=== PATIENT | male | born 1955 | race African-American/Black ===

== ENCOUNTER → 2018-05-15 | Outpatient (CLI) | payer BC ==
[~2018-05-15] MED LIST: ACETAMINOP160 MG/51 PER TUBE; AKWA TEARS OIN3.5 GM OPHTHALMIC; AMLODIPINE BESY10 MG PER TUBE; ARTIFICIAL TEA3.5 G2 OPHTHALMIC; ASPERCREME1 EACH TOP; ASPIR 8181 MG PER TUBE; CLONIDINE HCL0.2 M2 PER TUBE; COREG25 M1 PER TUBE; CYCLOBENZAPRINE5 MG PER TUBE; FAMOTIDINE20 MG PER TUBE; FERROUS SU300 MG/5 M PER TUBE; FLUSH FLUSH; HYDRAZINE SULFAT1 GM PER TUBE; HYTRIN 1 MG CAP1 MG PER TUBE; ISOSORBIDE DN 110 M1 PER TUBE; LASIX 20 MG TAB20 MG PER TUBE; LEXAPRO 10 MG T10 M2 PER TUBE; MIRTAZAPINE15 M2 PER TUBE; NEPHROCAPS SOFT1 CAP PER TUBE; NITROGLYCERIN0.4 MG SUBLING; NYAMYC15 GM TOP; ONDANSETRON HCL4 M2 PER TUBE; OXYCODONE HCL 55 MG PER TUBE; PERIDEX15 ML SWISH&SPIT; SENNA8.6 MG PER TUBE; TRAMADOL 50 MG50 MG PER TUBE; TRAMADOL 50 MG50 MG PO; VITAMIN D2000 UNIT PER TUBE; VITAMIN D250000 UNIT PO; WELLBUTRIN 75 M75 M1 PER TUBE; ZOSYN 2.252.25 GM/51 IV; ZOSYN 3.3753.375 GM IV
--- NOTE | ~2018-05-15 | HC ---
[facility] [place] [address] CONSULTATION Name: NAMRATA BARNEY Room #: REG [facility] Raegan#: [id number] Admission: 05/15/18 Attend Phys: Chico Fay Discharge: Date of : 53 Report #: [id number] THIS REPORT FOR: //name// CC: Chico Rocha DATE OF SERVICE: 05/15/2018 INFECTIOUS DISEASE CONSULTATION REASON FOR CONSULTATION: Recommendation regarding antibiotics, left fifth metatarsophalangeal joint osteomyelitis, right hip stage IV decubitus, question septic arthritis. HISTORY OF PRESENT ILLNESS: The patient is a 62-year-old man with multiple medical problems, residing at a local nursing facility, [facility]. The patient apparently recently had an MRI of the left foot as well as the right hip for evaluation of chronic ulcers on the left foot and chronic ulceration of right hip area. The patient apparently had a PICC line inserted some 3 weeks ago and been on treatment with Zosyn 2.25 g IV every 8 hours. The patient is scheduled to have left fifth ray amputation of the fifth toe by Dr. Ar Ruggiero this coming week. At present, the patient voices no major complaints. He occasionally has pain in the hip area as well as the left foot. PAST MEDICAL HISTORY: Diabetes mellitus for some 10 years, history of chronic kidney disease complicated by acute renal injury failure requiring hemodialysis through a left internal jugular tunneled dialysis catheter. The patient apparently is scheduled to have a fistula in June 2018. The patient is currently being dialyzed at [facility], and Dr. Del Rio is his farrowing worker. The infectious disease coverage was by Dr. Concepcion and Dr. Del Rio at [facility]. Past medical history is also positive for recent respiratory failure, right lung pneumonia and pleural effusion requiring hospitalization at [facility] on 12/22/2017. Subsequently, the patient was transferred to [facility] on 01/19/2018 and subsequently to the intermediate facility as listed above. The patient apparently was diagnosed to have septic arthritis of the right hip and was not deemed to be a surgical candidate during that previous hospitalization. He did have previous urinary tract infection with Enterococcus species and Pseudomonas aeruginosa. The right total hip arthroplasty was infected with Staphylococcus aureus, oxacillin sensitive. 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 Recent culture obtained on 04/15/2018, I suspect of the left foot wound revealed light growth of Klebsiella pneumonia and moderate growth of Enterococcus faecalis. The Enterococcus faecalis was ampicillin sensitive and the Klebsiella pneumoniae was sensitive to most antibiotics, but ampicillin, the organism sensitive to Zosyn. [address] [address] CONSULTATION Name: NAMRATA BARNEY Room #: FREDERICK Carlin#: [id number] Admission: 05/15/18 Attend Phys: Chico Fay Discharge: Date of : 53 Report #: [id number] DRUG ALLERGIES: None listed. MEDICATIONS: The patient is currently on treatment with Zosyn 2.25 g IV every 8 hours as well as p.r.n. tramadol, terazosin 1 mg per feeding tube daily, senna 2 tablets feeding tube daily, oxycodone p.r.n., ondansetron p.r.n., mirtazapine 15 mg per feeding tube at bedtime, isosorbide 10 mg per feeding tube 3 times daily, hydralazine 100 mg per feeding tube 3 times daily, Lasix 20 mg daily, ferrous sulfate, famotidine, citalopram, cyclobenzaprine, clonidine, carvedilol, bupropion, multivitamins. The patient is on dialysis 3 times weekly Tuesdays, and Saturdays through the left internal jugular tunneled dialysis catheter. PHYSICAL EXAMINATION: GENERAL: Chronically ill-appearing man, not toxic looking, presenting with following vital signs. VITAL SIGNS: Temperature 98.4, pulse 80, BP 148/78, O2 saturation 98% on room air. HEENMT: Head normocephalic, atraumatic. Pupils reactive. Mouth: No thrush. NECK: Supple, no thyromegaly. CHEST: Left internal jugular dialysis catheter. LUNGS: Clear. HEART: S1, S2. No gallop or murmur. ABDOMEN: Revealed percutaneous gastrostomy, soft, no masses or megaly. GENITALIA: Deferred. RECTAL: Deferred. BACK: Revealed a stage IV right gluteal ischial decubitus with exposed deep structures. EXTREMITIES: No clubbing, cyanosis, pretibial edema. On the left fifth toe fifth metatarsophalangeal joint area, there is a superficial ulceration, and no active signs of infection. LABORATORY DATA: MRI on 05/13/2018 of the pelvis revealed bony remodeling of right hip with acetabular protrusion and loss of femoral head with complex joint effusion. Differential includes septic arthritis or previously treated infection. MRI of the left foot on 05/04/2018 revealed osteomyelitis and septic arthritis involving the left distal fifth metatarsal and fifth proximal phalanx of the fifth metatarsophalangeal joint. On 03/11/2018, chemistries reveal the following abnormals, BUN 54, creatinine 3.4, albumin 2.2 g/dL, alkaline phosphatase 312 U/L, prealbumin 1.3 is mg/dL. ASSESSMENT: 1. Chronic osteomyelitis, left fifth metatarsophalangeal joint area (possible infection with Klebsiella pneumoniae, Enterococcus faecalis) -- for right amputation this coming week. [facility] [address] [place] [address] CONSULTATION Name: SAVITANAMRATA Room #: REG [facility] Sravan.#: [id number] Admission: 05/15/18 Attend Phys: Chico Fay Discharge: Date of : 53 Report #: [id number] 2. 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 3. Diabetes mellitus. 4. Chronic kidney disease, on hemodialysis 3 times weekly. 5. Malnutrition, severe. 6. Anemia of chronic disease. 7. Status post percutaneous gastrostomy. SUGGESTION: For time being, recommend continuation of treatment with Zosyn 2.25 g IV every 12 hours. This antibiotic will cover the isolated organisms on the left foot that include the Klebsiella pneumoniae and Enterococcus faecalis as well as the previously isolated Staphylococcus aureus, oxacillin sensitive in right hip infection. Possibly recommend increasing dose of Zosyn to 2.25 g IV every 8 hours, which is the usual dose for Zosyn in patients with renal failure Proceed with right amputation. The issue of right hip infection will be addressed at a later date after I review MRI of the hip and possibly discuss the patient's situation with Dr. Maximo Concepcion or Dr. Alex Del Rio, which I believe may have seen this patient before at [facility]. Dr. Rocha, thank you for requesting my suggestions in the care of your patient. <ELECTRONICALLY SIGNED> By: Chico Maldonado MD 05/18/18 1033 1212 2215 Chico Maldonado MD /nt
[2018-05-15 11:15] VITALS: BP 143/78
== END ==
LOC: EDBD 08:17 → SEN 08:17
DX: M86.8X7 Other osteomyelitis, ankle and foot (principal); E11.22 Type 2 diabetes mellitus with diabetic chronic kidney disease; N18.9 Chronic kidney disease, unspecified; D63.1 Anemia in chronic kidney disease; M00.051 Staphylococcal arthritis, right hip; B95.7 Other staphylococcus as the cause of diseases classified elsewhere; Z93.1 Gastrostomy status

== ENCOUNTER 2018-05-22 05:35 | Inpatient (IN) | payer OTHER, BC ==
[~2018-05-22] VITALS: Ht 180.3 cm; Wt 64.7 kg
--- NOTE | ~2018-05-22 | EKG ---
[address] [address] ELECTROCARDIOGRAM REPORT Name: NAMRATA BARNEY Katherin Room #: 150-4 [facility]#: [id number] Admission: 05/22/18 Attend Phys: Ar Ruggiero MD Discharge: Date of : 53 Report #: [id number] THIS REPORT FOR: //name// [facility] Test Date: 2018-05-22 Test Time: 06:35:45 Pat Name: NAMRATA BARNEY Department: Room: 150 Gender: M Associate Doctor: PER : 1955 Requested By: Ar Ruggiero Order Number: [id number] MD: Antony Doherty Measurements Intervals [place] Rate: 94 P: 40 OR: 169 QRS: -18 QRSD: 88 T: 54 QT: 358 QTc: 448 Interpretive Statements Sinus rhythm Borderline left axis deviation Borderline low voltage, extremity leads No previous ECG available for comparison Electronically Signed On 05-22-2018 8:19:38 CDT by Antony Doherty [email or web address] <ELECTRONICALLY SIGNED> By: Antony Doherty MD, [facility] 05/22/18 0819 4 4 Antony Doherty MD, [facility] /EPI
--- NOTE | ~2018-05-22 | PATH ---
[facility] [address] [place] [address] PATHOLOGY RPT PROCEDURE Name: SAVAGE BARNEY Room #: 462-P ADM IN M.R.#: [id number] Admission: 05/22/18 Date of : 53 Discharge: Report #: [id number] Path Case #: [id number] [facility] Accession Number: [id number] . 01 Material submitted: . LEFT 5TH RAY . 01 Clinical history: . Left fifth metatarsal osteomyelitis . 02 Diagnosis: "Left fifth ray", amputation: - Skin and subcutaneous tissue with acute and chronic inflammation, necrosis, granulation tissue, fibrosis and pseudoepitheliomatous hyperplasia. - Decalcified bone with fibrosis, predominantly chronic inflammation, edema, granulation tissue and extensive bony remodeling. (See comment) LBQ/05/25/2018 . 02 Comment: The decalcified bony findings may represent chronic osteomyelitis and reparative changes. Clinical and radiographic correlation is recommended. (CLW:db; 05/25/2018) . 02 Electronically signed: . Madyson Lubin MD, Pathologist NPI- [id number] . 01 Gross description: . The specimen is received in formalin, labeled "Savage Banrey, left fifth ray" and consists of a transected toe measuring 7.2 x 2.4 x 2.1 cm. The nail is present which is soft and rodriguez-iglesias. There is a segment of attached skin on the left plantar aspect measuring 5.0 x 2.0 cm which displays an ulcerated lesion measuring 2.3 x 1.5 cm which extends to a depth of 0.8 cm. The remainder of the toe has no attached skin. The proximal bone margin is flat and smooth. The toe is longitudinally sectioned and submitted representatively as follows: . A1: Skin and soft tissue margin with ulceration A2: Proximal bone margin A3: Toe, longitudinal section proximal A4: Toe, longitudinal section mid A5: Toe, longitudinal section distal Cassette A2-A5 will be submitted following decalcification. (SDY; 05/22/2018) SYU/SYU . [address] [place] [address] PATHOLOGY RPT PROCEDURE Name: SAVAGE BARNEY Room #: 462-P ADM IN M.R.#: [id number] Admission: 05/22/18 Date of : 53 Discharge: Report #: [id number] Path Case #: [id number] Pathologist provided ICD-10: L08.9, L92.8, L90.5, L85.8, M89.8X7 . 02 CPT . 991149, 681469 Performed at: [address], [place] [id number] MD Samuel Gillespie MD Phone: [phone] Performed at: [address] [id number] MD Dina Pyle MD Phone: [phone]
--- NOTE | ~2018-05-22 | HC ---
[facility] [place] [address] CONSULTATION Name: NAMRATA BARNEY Katherin Room #: 462-P [facility]#: [id number] Admission: 05/22/18 Attend Phys: Ar Ruggiero MD Discharge: Date of : 53 Report #: [id number] THIS REPORT FOR: //name// CC: Ar Ruggiero [facility] DATE OF SERVICE: 05/23/2018 REASON FOR CONSULTATION: End-stage renal disease. HISTORY OF PRESENT ILLNESS: This 62-year-old patient was admitted to this hospital for a left fifth metatarsal ray amputation for osteomyelitis yesterday. He has end-stage renal disease, has been on dialysis for the past 5 months. He has had previous septic arthritis of the right hip with MSSA, multiple other infections, longstanding diabetes and hypertension. He has been dialyzing 3 times weekly. Last dialyzed 2 days ago. PAST MEDICAL HISTORY: Longstanding diabetes mellitus complicated by peripheral neuropathy, but no retinopathy according to the patient. He has had debility. He had a prolonged hospitalization at [facility], at which time he had the acute superimposed on chronic kidney disease and has been on dialysis ever since. FAMILY HISTORY: Negative for diabetes or kidney disease. SOCIAL HISTORY: No cigarettes or alcohol. He has not been home. He is currently now staying in extended care facility. REVIEW OF SYSTEMS: GENERAL: He has been feeling better. EYES: Vision is okay. Did have cataract surgery. ENT: Hearing okay. He is swallowing okay now. He did not for a while. He did have a PEG tube in which he still has in. ENDOCRINE: Positive for the diabetes. RESPIRATORY: Denies shortness of breath, pleuritic pain, emphysema, asthma. CARDIAC: Denies chest pain, angina or heart disease. GASTROINTESTINAL: Denies nausea, vomiting or diarrhea. He is eating okay. GENITOURINARY: Continues to make some urine, no dysuria. PSYCHIATRIC: Denies depression or anxiety. NEUROLOGIC: Denies seizure, syncope or stroke. He does have the peripheral neuropathy. PHYSICAL EXAMINATION: GENERAL: This is a somewhat chronically ill appearing patient. He is awake and alert and lucid, giving good history. SKIN: Unremarkable. [facility] [address] [place] [address] CONSULTATION Name: NAMRATA BARNEY Room #: 462-P [facility].#: [id number] Admission: 05/22/18 Attend Phys: Ar Ruggiero MD Discharge: Date of : 53 Report #: [id number] SKELETAL: He is thin. HEENT: Extraocular movements are full. Vision is intact and there is no scleral icterus. Mucous membranes are moist. No buccal mucosal lesions are noted. NECK: Supple without carotid bruits or thyromegaly. CHEST: Completely clear to auscultation. HEART: Regular. ABDOMEN: Soft and nontender. PEG tube in place. EXTREMITIES: Show no edema. Peripheral pulses intact. NEUROLOGIC: Intact. LABORATORY DATA: Potassium 4.6, bicarbonate 19, creatinine yesterday 3.1, albumin only 2.3. ASSESSMENT: 1. End-stage renal disease, continuing on routine 3 times weekly dialysis. Dialysis orders written for today. 2. Diabetes mellitus with peripheral neuropathy and end-stage renal disease. 3. Status post septic arthritis of the right hip. 4. Status post ray amputation of the left fifth metatarsal for osteomyelitis. By: [id number] León Jameson MD /nt
--- NOTE | ~2018-05-22 | HC ---
[facility] [place] [address] CONSULTATION Name: NAMRATA BARNEY Room #: 462-P ADM IN ..#: [id number] Admission: 05/22/18 Attend Phys: Ar Ruggiero MD Discharge: Date of : 53 Report #: [id number] THIS REPORT FOR: //name// CC: Ar Ruggiero [facility] DATE OF SERVICE: 05/25/2018 CHIEF COMPLAINT: Sacral ulcer and bleeding from left foot. HISTORY OF PRESENT ILLNESS: This is a 62-year-old male patient with a known pressure ulcer to his sacrum. He has been under the care of an outside physician at a local [place] [facility] [place] facility. He was noted to have osteomyelitis of his left foot, has undergone a fifth ray resection. He also has a history of a sacral pressure ulceration. He has been receiving local care for that. The patient denies pain at this time. He had significant bleeding from his surgical site today and I have placed sutures to help stop the bleeding. PAST MEDICAL HISTORY: Positive for type 2 diabetes mellitus, chronic kidney disease requiring hemodialysis, has a history of respiratory failure. He has had a previous right total hip arthroplasty that was previously infected with Staphylococcus aureus. ALLERGIES: None. MEDICATIONS: include Zosyn, tramadol, terazosin, senna, oxycodone, ondansetron, mirtazapine, famotidine, citalopram, cyclobenzaprine, clonidine, carvedilol, bupropion, multivitamin. FAMILY HISTORY: Noncontributory. SOCIAL HISTORY: Negative for current alcohol or tobacco use. REVIEW OF SYSTEMS: CONSTITUTIONAL: The patient denies fever, chills, weight loss. NEUROLOGICAL: The patient denies focal weakness. ENT: The patient denies earache, nasal drainage or sore throat. CARDIOVASCULAR: The patient denies chest pain, palpitations, diaphoresis. PULMONARY: The patient denies cough, shortness of breath. GASTROINTESTINAL: The patient denies nausea, abdominal pain. ORTHOPEDIC: The patient is aware of the bleeding from his left foot. Denies pain, is aware of the sacral ulceration. Other systems in a 14-point review of systems are negative. PHYSICAL EXAMINATION: VITAL SIGNS: At this time include pulse 87, respiratory rate 20, blood pressure [facility] [address] [place] [address] CONSULTATION Name: NAMRATA BARNEY Katherin Room #: 2[facility]#: [id number] Admission: 05/22/18 Attend Phys: Ar Ruggiero MD Discharge: Date of : 53 Report #: [id number] 135/67, temperature 99.5. GENERAL: This is a chronically ill-appearing male patient who appears to be in no distress. HEENT: Head normocephalic. Nose and throat are clear. NECK: Supple. LUNGS: Diminished. HEART: Regular rhythm. ABDOMEN: Soft, is nontender. He has a percutaneous gastrostomy tube. BACK: Sacral region demonstrates a stage 3 or 4 sacral coccygeal pressure ulceration that is relatively clean and granulating. I am not able to palpate bone at this time. It has been previously classified as a stage 4. EXTREMITIES: Demonstrate some bleeding from the surgical incision line. This was corrected with direct pressure and by placement of 2 sutures. Please see separate procedure note. CLINICAL IMPRESSION: 1. Stage 4 sacral pressure ulceration. 2. Chronic osteomyelitis, left fifth MTP status post fifth ray resection. 3. Diabetes mellitus. 4. Chronic kidney disease, on hemodialysis. 5. Severe protein calorie malnutrition. 6. Status post percutaneous gastrostomy tube. RECOMMENDATIONS: At this point in time, recommend silver alginate and gauze dressing to be applied to the sacral ulceration daily. He will need to be turned and repositioned every 2 hours. We will recommend aggressive nutritional support to maximize wound healing and improved glycemic control. Recommend Prevalon boots to the lower extremities. A pressure dressing left in place involving the left foot. I appreciate being asked to see him in consultation. <ELECTRONICALLY SIGNED> By: Mo Olsen MD 05/26/18 1211 1847 36 Mo Olsen MD /nt
--- NOTE | ~2018-05-22 | P ---
[facility] [place] [address] PROCEDURE REPORT Name: SAVITAOTT L Room #: 462-P ADM IN M.R.#: [id number] Admission: 05/22/18 Attend Phys: Ar Ruggiero MD Discharge: Date of : 53 Report #: [id number] THIS REPORT FOR: //name// CC: Ar Ruggiero [facility] DATE OF SERVICE: 05/25/2018 CHIEF COMPLAINT: Bleeding from the left foot. HISTORY OF PRESENT ILLNESS: This is a 62-year-old male patient with a history of left fifth metatarsal osteomyelitis who has undergone a fifth ray amputation. Apparently, one of the nurse practitioners pulled the drain today. Subsequently, he developed significant bleeding. I was called urgently to the bedside to see him. Upon my arrival, the patient denied significant pain, but nurses noted a moderate amount of blood saturating the dressings as well as on the bed itself. Initially, a small hematoma was expressed from the distal portion of the incision line and a pressure dressing was applied. After hemostasis was verified, a procedure tray was ordered to the bedside and after local anesthetic several sutures were placed. PREPROCEDURE DIAGNOSIS: Surgical incision, left foot, status post left foot fifth ray amputation. POSTPROCEDURE DIAGNOSIS: Surgical incision, left foot, status post left foot fifth ray amputation. PROCEDURE PERFORMED: Primary repair of bleeding incision line. DESCRIPTION OF PROCEDURE: After appropriate consent was obtained and timeout was taken, the left foot was prepped with Betadine and draped in the usual sterile fashion. The distal incision line was anesthetized with 1% plain lidocaine. After adequate anesthesia, 2 sutures of 3-0 nylon were utilized in a simple interrupted fashion to tightly close a small opening along the incision line with good hemostasis. The patient tolerated the procedure well. Estimated blood loss from the procedure was minimal. A dry gauze dressing with Kerlix and Vasquez was then applied. The patient tolerated this well. <ELECTRONICALLY SIGNED> By: Mo Olsen MD 05/26/18 1211 1828 1926 Mo Olsen MD /nt
--- NOTE | ~2018-05-22 | O ---
[facility] [place] [address] OPERATIVE REPORT Name: SAVITANAMRATA Room #: 462-P [facility] IN ..#: [id number] Admission: 05/22/18 Attend Phys: Ar Ruggiero MD Discharge: 05/26/18 Date of : 53 Report #: [id number] THIS REPORT FOR: //name// CC: Ar Ruggiero [facility] DATE OF SERVICE: 05/22/2018 PREOPERATIVE DIAGNOSIS: Left foot fifth metatarsal osteomyelitis. POSTOPERATIVE DIAGNOSIS: Left foot fifth metatarsal osteomyelitis. PROCEDURE: Left foot fifth ray amputation. SURGEON: Ar Ruggiero MD SURGERY MANAGER: Brie Sweet. ANESTHESIA: General. ESTIMATED BLOOD LOSS: Minimal. DRAINS: No drains. TOURNIQUET TIME: 15 minutes. DESCRIPTION OF PROCEDURE: The patient brought to the operating room where he was placed under general anesthesia. Once under adequate general anesthesia, his left lower extremity was prepped and draped in a sterile manner. The extremity was elevated and a tourniquet placed to 300 mmHg. A racquet shaped incision was then placed about the base of the proximal phalanx of the fifth toe and extended along the fifth metatarsal. This was dissected sharply down to the bone releasing any dorsal soft tissue from the toe as well as the fifth metatarsal. Once released and the metatarsal was exposed, the metatarsal was then subsequently osteotomized with a sagittal saw, a transverse cut through the bone. Once released, the bone was then completely removed utilizing a 15 blade to completely release the soft tissue and the entire metatarsal and toe was removed. Once completely removed, the wound was irrigated copiously and closed over a Jeanette drain with 2-0 nylon suture in a simple stitch manner. The wound was then dressed with Xeroform, 4 x 4s and a sterile soft compressive dressing was placed. Tourniquet was let down at approximately 15 minutes. There were no [facility] [address] [place] [address] OPERATIVE REPORT Name: SAVITAOTT L Room #: 462-P [facility]#: [id number] Admission: 05/22/18 Attend Phys: Ar Ruggiero MD Discharge: 05/26/18 Date of : 53 Report #: [id number] complications from the procedure. The patient tolerated the procedure well and was taken to the recovery room without incident. <ELECTRONICALLY SIGNED> By: Ar Ruggiero MD 06/09/18 1206 0811 0904 Ar Ruggiero MD /nt
[~2018-05-22 05:35] MED LIST changes: +HYDRALAZINE HC100 MG PER TUBE; +[UNRECOGNIZED DRUG - OTHER] PER TUBE; +[UNRECOGNIZED DRUG - OTHER] PER TUBE
[2018-05-22 06:39] VITALS: BP 176/84
[2018-05-22 07:07] LABS: HEMATOCRIT 25.1 % (42.0-52.0); HEMOGLOBIN 8.5 gm/dL (14.0-18.0); MCH 30.7 pg (26.0-34.0); MCHC 33.8 g/dL (28.0-37.0); MCV 90.9 fL (80.0-100.0); RBC 2.77 mil/uL (4.50-6.00); RDW 17.5 % (10.5-14.5); WBC 6.4 thou/uL (4.0-11.0)
[2018-05-22 07:14] LABS: CALCIUM 7.9 mg/dL (8.5-10.1); CREATININE 3.1 mg/dL (0.7-1.3); POTASSIUM 3.7 mmol/L (3.5-5.1)
[2018-05-22 07:21] LABS: ALBUMIN 2.3 g/dL (3.4-5.0); TOTAL BILIRUBIN 0.6 mg/dL (<0.1-1.0); TOTAL PROTEIN 7.7 g/dL (6.4-8.2)
[2018-05-22 16:00] VITALS: BP 173/96
[2018-05-22 20:33] VITALS: BP 182/94
[2018-05-23 04:32] LABS: HEMOGLOBIN 8.1 gm/dL (14.0-18.0)
[2018-05-23 04:50] LABS: POTASSIUM 4.6 mmol/L (3.5-5.1)
[2018-05-23 07:50] VITALS: BP 163/87
[2018-05-23 19:26] VITALS: BP 162/79
[2018-05-24 03:27] VITALS: BP 162/76
[2018-05-24 05:32] LABS: HEMATOCRIT 23.3 % (42.0-52.0); HEMOGLOBIN 7.9 gm/dL (14.0-18.0); MCH 30.3 pg (26.0-34.0); MCHC 33.7 g/dL (28.0-37.0); RBC 2.59 mil/uL (4.50-6.00); RDW 17.5 % (10.5-14.5); WBC 7.3 thou/uL (4.0-11.0)
[2018-05-24 05:50] LABS: CALCIUM 7.5 mg/dL (8.5-10.1); CREATININE 3.2 mg/dL (0.7-1.3); PHOSPHORUS 3.5 mg/dL (2.5-4.9); POTASSIUM 4.8 mmol/L (3.5-5.1)
[2018-05-24 08:00] VITALS: BP 164/74
[2018-05-24 16:00] VITALS: BP 137/65
[2018-05-24 20:22] VITALS: BP 147/65
[2018-05-25 02:51] VITALS: BP 152/86
[2018-05-25 05:53] LABS: HEMOGLOBIN 7.6 gm/dL (14.0-18.0); MCH 30.2 pg (26.0-34.0); MCHC 33.2 g/dL (28.0-37.0); PLATELET COUNT 225 thou/uL (150-400); RBC 2.53 mil/uL (4.50-6.00); RDW 17.3 % (10.5-14.5); WBC 6.4 thou/uL (4.0-11.0)
[2018-05-25 06:17] LABS: CALCIUM 7.4 mg/dL (8.5-10.1); POTASSIUM 5.6 mmol/L (3.5-5.1)
[2018-05-25 06:18] LABS: CREATININE 4.5 mg/dL (0.7-1.3)
[2018-05-25 08:00] VITALS: BP 153/74
[2018-05-25 08:30] LABS: PLATELET ESTIMATE NORMAL
[2018-05-25 16:00] VITALS: BP 135/67
[2018-05-25 19:34] VITALS: BP 140/72
[2018-05-26 06:35] LABS: HEMATOCRIT 22.4 % (42.0-52.0); HEMOGLOBIN 7.5 gm/dL (14.0-18.0); MCH 30.5 pg (26.0-34.0); MCHC 33.6 g/dL (28.0-37.0); MCV 90.8 fL (80.0-100.0); PLATELET COUNT 221 thou/uL (150-400); RBC 2.47 mil/uL (4.50-6.00); RDW 17.3 % (10.5-14.5); WBC 7.4 thou/uL (4.0-11.0)
[2018-05-26 06:49] LABS: CALCIUM 7.7 mg/dL (8.5-10.1); CREATININE 5.4 mg/dL (0.7-1.3); POTASSIUM 5.7 mmol/L (3.5-5.1)
[2018-05-26 08:48] LABS: ABSOLUTE NEUTROPHILS 5.4 thou/uL (1.4-8.2); PLATELET ESTIMATE NORMAL
[2018-05-26 15:05] VITALS: BP 151/76
== END 2018-05-26 16:30 | DRG 853 ==
LOC: EDBD → OR 05:35 → TBA 05:36 → OR 10:01 → 4W 16:48 → OR 16:49 → 4W 16:49
PROVIDERS: Hospitalist; Orthopaedic Surgery Foot and Ankle Surgery
PROC: 0Y6N0ZF Detachment at Left Foot, Partial 5th Ray, Open Approach (ICD-10-PCS; principal; 2018-05-22)
PROC: 5A1D70Z Performance of Urinary Filtration, Intermittent, Less than 6 Hours Per Day (ICD-10-PCS; 2018-05-23)
PROC: 0YQYXZZ Repair Left 5th Toe, External Approach (ICD-10-PCS; 2018-05-25)
PROC: 5A1D70Z Performance of Urinary Filtration, Intermittent, Less than 6 Hours Per Day (ICD-10-PCS; 2018-05-25)
PROC: 05HY33Z Insertion of Infusion Device into Upper Vein, Percutaneous Approach (ICD-10-PCS; 2018-05-26)
DX: A41.9 Sepsis, unspecified organism (principal); L89.154 Pressure ulcer of sacral region, stage 4; E43 Unspecified severe protein-calorie malnutrition; N18.6 End stage renal disease; M86.8X7 Other osteomyelitis, ankle and foot; I12.0 Hypertensive chronic kidney disease with stage 5 chronic kidney disease or end stage renal disease; L76.22 Postprocedural hemorrhage of skin and subcutaneous tissue following other procedure; M00.051 Staphylococcal arthritis, right hip; Z68.1 Body mass index [BMI] 19.9 or less, adult; E11.69 Type 2 diabetes mellitus with other specified complication; E11.22 Type 2 diabetes mellitus with diabetic chronic kidney disease; E11.51 Type 2 diabetes mellitus with diabetic peripheral angiopathy without gangrene; Y92.238 Other place in hospital as the place of occurrence of the external cause; B95.61 Methicillin susceptible Staphylococcus aureus infection as the cause of diseases classified elsewhere; F32.9 Major depressive disorder, single episode, unspecified; N40.0 Benign prostatic hyperplasia without lower urinary tract symptoms; E87.5 Hyperkalemia; G89.29 Other chronic pain; M54.9 Dorsalgia, unspecified; D64.9 Anemia, unspecified; Z79.899 Other long term (current) drug therapy; Z93.1 Gastrostomy status; Z74.01 Bed confinement status
CPT/HCPCS: 10047; 32100; 50010; 50101; 50386; 56525; 56526; 56528; 57091; 62110; 62900; 70005